=== PATIENT | male | born 1985 | race Native Hawaiian/Other Pacific Islander ===

== ENCOUNTER 2022-08-29 09:39 | Emergency (ER) | payer OTHER, MEDICAID, SELFPAY ==
[2022-08-29] VITALS (67 sets, daily range): BP systolic 130–275; BP diastolic 65–163; PULSE 81–150; RESP 3–39; TEMP 28–36.7; O2SAT 93–100; BMI 50.2
--- NOTE | 2022-08-29 10:00 | DI.US.S_ITS ---
PROCEDURE: US PERIPH VENOUS LOW EXTREM RT INDICATIONS: PAIN AND SWELLING. RECENT TRAUMA. TECHNIQUE: Real-time imaging, as well as color and pulse Doppler interrogation, were performed of the lower extremity deep veins from the inguinal ligament to the popliteal fossa. COMPARISON: None. FINDINGS: This is a limited study due to patient body habitus. The common femoral, femoral and popliteal veins are normally compressible, and free of intraluminal thrombus. Color and pulse Doppler demonstrate normal phasic intraluminal flow. There is normal augmentation response to distal compression maneuver. IMPRESSION: Limited study given body habitus. No deep vein thrombosis of the right lower extremity. Dictated by: Theresa Elliott M.D. on 08/29/2022 at 10:55 Approved by: Theresa Elliott M.D. on 08/29/2022 at 10:56
--- NOTE | 2022-08-29 10:02 | DI.US.S_ITS ---
PROCEDURE: US ABDOMEN LIMITED INDICATIONS: ASCITES - ZELDA FOR PARACENTESIS TECHNIQUE: Real-time focused scanning was performed of the abdomen, with image documentation. COMPARISON: None. FINDINGS: No free fluid visualized within the abdomen. IMPRESSION: No sonographic evidence for abdominal ascites. Dictated by: Theresa Elliott M.D. on 08/29/2022 at 11:37 Approved by: Theresa Elliott M.D. on 08/29/2022 at 11:38
--- NOTE | 2022-08-29 10:02 | DI.RAD.S_ITS ---
PROCEDURE: XR CHEST 1V INDICATIONS: SOB TECHNIQUE: One view of the chest was acquired. COMPARISON: None. FINDINGS: Surgical changes and devices: None. Lungs and pleura: There is mild diffuse interstitial radiopacities. Mediastinum: There is marked enlargement of the cardiac silhouette. Bones and chest wall: No suspicious bony lesions. Overlying soft tissues appear unremarkable. IMPRESSION: 1. Marked enlargement of the cardiac silhouette suggesting either marked cardiomegaly or large pericardial effusion. If further characterization is warranted, echocardiogram could be used. 2. Interstitial prominence suggesting fluid overload. Dictated by: Theresa Elliott M.D. on 08/29/2022 at 10:37 Approved by: Theresa Elliott M.D. on 08/29/2022 at 10:37
--- NOTE | 2022-08-29 10:11 | ED_ITS ---
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 No hernias.? There is diffuse , mild anasarca noted. Abdominal Nodes:? No retroperitoneal or mesenteric adenopathy by size criteria.? Vessels:? Aorta and inferior vena cava are normal in size.? ? PELVIS: Pelvic Organs:? Unremarkable.? ? Bladder:? Unremarkable.? ? Pelvic Nodes: No enlarged lymph nodes.? Miscellaneous: No hernias are seen. ? ? ? Bones:? Unremarkable.? IMPRESSION:? ? 1. Marked cardiomegaly.? Trace pericardial effusion. ? 2. Left lower lobe airspace radiopacities suspicious for aspiration/infection. S hort interval followup is recommended with resolution of the patient's symptoms to ensure there is no underlying pulmonary pathology. ? 3. Trace low-density right pleural effusion. ? 4. Mild splenomegaly. ? 5. Trace retroperitoneal fat stranding, perihepatic fluid and anasarca suggesting fluid overload. ? 6. Nonobstructive right nephrolithiasis. ? 7. Diverticulosis.? No acute diverticulitis.? Normal appendix. ? Dictated by: Theresa Elliott M.D. on 08/29/2022 at 13:19 ? ? Approved by: Theresa Elliott M.D. on 08/29/2022 at 13:25 ? CT scan - chest: Radiologist's Impression: [address] [address] [address] Scan Report Signed Patient: Abdirahman Cavazos MR#: [id number] : 1985 Acct:[id number] Age/Sex: 36 / M Date of Service: 08/29/22 Loc: ED Accession Number: [id number] ?? Procedure: CT angio chest PE protocol Ordering Provider: Dallas Veronica D.O. PROCEDURE:? CT ANGIO CHEST PE PROTOCOL ? INDICATIONS:? tachycardia, critical dimer, elevated trop/BNP ? TECHNIQUE:? After the administration of intravenous contrast, 2 mm thick sections acquired from the pulmonary apices to the posterior costophrenic angles.? 3-dimensional maximum intensity projection (MIP) coronal and sagittal reformats were then acquired through the thorax.? For radiation dose reduction, the following was used:? automated exposure control, adjustment of mA and/or kV according to patient size.? ? COMPARISON:? None. ? FINDINGS:? Image quality:? Excellent.? ? Pulmonary arteries:? Pulmonary arteries are normal in size, and demonstrate no intraluminal filling defects to suggest central pulmonary embolism.? ? Lungs and pleura:? There is a small low-density right pleural effusion.? Focal airspace opacities are present at the left lung base.? No other acute airspace opacities.? No pulmonary contusions or lacerations. ? Mediastinum:? Heart size is markedly enlarged with a trace low-density pericardial effusion.? No mediastinal or hilar adenopathy.? Thoracic aorta is normal in caliber and enhancement.? Esophagus is normal in caliber, without hiatal hernia.? ? Bones and chest wall:? No suspicious bony lesions.? Ribs and thoracic spine appear intact throughout.? Thyroid gland is unremarkable.? No axillary or supraclavicular adenopathy.? ? Abdomen:? Visualized upper abdominal solid organs appear normal in the early arterial phase of enhancement.? ? IMPRESSION:? ? 1. Marked cardiomegaly with trace pericardial effusion. ? 2. Trace low-density right pleural effusion. ? 3. No acute pulmonary embolus.? ? ? Dictated by: Theresa Elliott M.D. on 08/29/2022 at 13:25 ? ? Approved by: Theresa Elliott M.D. on 08/29/2022 at 13:27 ? Echo: Radiologist's Impression: [address] [address] [address] Scan Report Signed Patient: Abdirahman Cavazos MR#: [id number] : 1985 Acct:[id number] Age/Sex: 36 / M Date of Service: 08/29/22 Loc: ED Accession Number: [id number] ?? Procedure: CT angio chest PE protocol Ordering Provider: Dallas Veronica D.O. PROCEDURE:? CT ANGIO CHEST PE PROTOCOL ? INDICATIONS:? tachycardia, critical dimer, elevated trop/BNP ? TECHNIQUE:? After the administration of intravenous contrast, 2 mm thick sections acquired from the pulmonary apices to the posterior costophrenic angles.? 3-dimensional maximum intensity projection (MIP) coronal and sagittal reformats were then acquired through the thorax.? For radiation dose reduction, the following was used:? automated exposure control, adjustment of mA and/or kV according to patient size.? ? COMPARISON:? None. ? FINDINGS:? Image quality:? Excellent.? ? Pulmonary arteries:? Pulmonary arteries are normal in size, and demonstrate no intraluminal filling defects to suggest central pulmonary embolism.? ? Lungs and pleura:? There is a small low-density right pleural effusion.? Focal airspace opacities are present at the left lung base.? No other acute airspace opacities.? No pulmonary contusions or lacerations. ? Mediastinum:? Heart size is markedly enlarged with a trace low-density pericardial effusion.? No mediastinal or hilar adenopathy.? Thoracic aorta is normal in caliber and enhancement.? Esophagus is normal in caliber, without hiatal hernia.? ? Bones and chest wall:? No suspicious bony lesions.? Ribs and thoracic spine appear intact throughout.? Thyroid gland is unremarkable.? No axillary or supraclavicular adenopathy.? ? Abdomen:? Visualized upper abdominal solid organs appear normal in the early arterial phase of enhancement.? ? IMPRESSION:? ? 1. Marked cardiomegaly with trace pericardial effusion. ? 2. Trace low-density right pleural effusion. ? 3. No acute pulmonary embolus.? ? ? Dictated by: Theresa Elliott M.D. on 08/29/2022 at 13:25 ? ? Approved by: Theresa Elliott M.D. on 08/29/2022 at 13:27 ? MDM Narrative Medical decision making narrative: [address] [place] [address] Cardio (Dr. Noble) called to touch base today, largely as a consequence of an increased troponin. It should be noted patient's blood pressures remained stable for him in the 170s, he reports no pain and has no ischemic change on EKG but there is an increase of troponin, call placed to discuss how to move for, she recommends no heparin or specific interventions at this time, only to trend EKGs and troponin. Still on wait list, continue diuresis and blood pressure management as previously planned with afterload reduction 1530 - call from [facility]. Dr. Jean (Cardiology) happy to be involved in consultation, requests discussion with hospitalist. Dr. Ceja happy to accept, requests tox screen if possible CC: Exertional shortness of breath and significant weight gain Complicating co-morbidities: BMI greater than 50, possible untreated hypertension and unrecognized kidney injury Data collected from: Patient and Medical records reviewed: None available Differential considered, but not limited to: Hypertensive emergency, myocarditis, tox induced cardiomyopathy versus other Exam documented above, pertinent findings include: Crackles in bilateral bases, increased work of breathing with minimal exertion. Significantly protuberant abdomen with reported marked weight gain Lab Test results independently reviewed as above. Pertinent findings: No leukocytosis or abnormal H&H. Critical D-dimer. Initial slightly elevated troponin at 0.1, subsequently rises to 0.660. Elevated BNP over 4000 Independently reviewed EKG as above Imaging studies independently reviewed: Chest x-ray with marked interstitial prominence suggesting fluid overload and cardiomegaly. Lower extremity ultrasound to rule out DVTs negative. CTA obtained given acute heart failure and presence of critically elevated D-dimer, marked cardiomegaly noted, no PE present. Abdomen and pelvis CT ordered noting diverticulosis in the absence of diverticulitis, normal appendix, no obvious liver abnormality Consultations: Multiple discussions with various cardiologists and intensivists at possible accepting facilities, see above Treatments: Diuresis, blood pressure control, afterload reduction Re-evaluations: Patient remained stable, no point dizzy of chest pain. He presents with at least a few days of increasing shortness of breath and exertional dyspnea. He is found to have hypertensive emergency, acute CHF with echocardiogram noting global hypokinesis, EF of 20% with biventricular involvement and severe pulmonary hypertension. He has a rising troponin in the absence of EKG changes or chest pain. Patient requires not only hospitalization but transfer to another facility for higher level of care with inpatient Cardiology, multiple cardiologists have suggested patient likely needs catheterization as part of this admission. Disposition: see below, along with detailed discharge instructions that have been reviewed with patient as well as indications for ED re-evaluation and additional outpatient follow up Critical Care Time Critical Care Time Critical Care Time: Yes Total Critical Care Time: 120 Attestation: The high probability of a clinically significant, sudden or life threatening deterioration of the [CV] system(s) required my full and direct attention, intervention and personal management. The aggregate critical care time was [120] minutes. This time is in addition to time spent performing reported procedures but includes the following: [x] Data Review and interpretation [x] Patient assessment and monitoring of vital signs [x] Documentation [x] Medication orders and management Discharge Plan Departure Patient Disposition: er [facility] Clinical Impression: Acute CHF, Kidney disease, Hypertensive emergency, Elevated troponin Prescriptions: No Action oxycodone 5 mg capsule 5 mg PO BID PRN Referrals: Miscellaneous,DoctorMD [Primary Care Provider] -
[2022-08-29 10:48] LABS: Add Manual Diff / Slide Review NO; Basophils Absolute Auto 100 /uL (0-100); Basophils Percent Auto 0.7 % (0-2); Eosinophils Absolute Auto 500 /uL (0-450); Eosinophils Percent Auto 5.9 % (2-4); Hematocrit 42.4 % (41-53); Hemoglobin 13.5 g/dL (13.5-17.5); INR 1.2 (0.9-1.3); Lymphocytes Absolute Auto 1500 /uL (1100-4500); Mean Corpuscular HGB Conc 31.7 % (30-36); Mean Corpuscular Hemoglobin 24.7 PG (26-34); Mean Corpuscular Volume 77.8 fL (80-100); Monocytes Absolute Auto 800 /uL (0-900); Monocytes Percent Auto 8.9 % (3-14); Neutrophils Absolute Auto 6400 /uL (1500-7000); Neutrophils Percent Auto 68.5 % (50-75); Platelet Count 276 X10^3/uL (150-400); Prothrombin Time 13.6 SECONDS (10.1-12.7); Red Blood Cell Count 5.45 X10^6/uL (4.5-5.9); Red Cell Distribution Width 18.1 % (11.6-14.8); White Blood Cell Count 9.3 X10^3/uL (4.5-11.0)
[2022-08-29 10:52] LABS: Creatine Kinase 388 U/L (55-170); Lactate (Lactic Acid) 0.9 mmol/L (0.7-2.1)
[2022-08-29 10:54] LABS: Alanine Aminotransferase 81 IU/L (<50); Alkaline Phosphatase 55 U/L (38-126); Aspartate Aminotransferase 50 IU/L (17-59); BUN Creatinine Ratio 14.5 (6-22); Bilirubin Total 0.7 mg/dL (0.2-1.3); Blood Urea Nitrogen 35 mg/dL (9-20); C-Reactive Protein Quant 1.9 mg/dL (<1.0); Calcium 8.2 mg/dL (8.4-10.2); Carbon Dioxide 24 mmol/L (22-32); Chloride 106 mmol/L (98-107); Estimated Glomerular Filt Rate 35 mL/min (>60); Glucose 139 mg/dL (70-100); HEMOLYSIS < 15 (0-50); Lipase 490 U/L (23-300); Potassium 4.1 mmol/L (3.4-5.1); Sodium 137 mmol/L (137-145); Total Protein 6.5 g/dL (6.3-8.2)
[2022-08-29 11:00] LABS: NT-proBNP (BNP-Adult 18+) 4420 pg/mL (<125)
[2022-08-29 11:05] LABS: Troponin I 0.135 ng/mL (0.01-0.034)
--- NOTE | 2022-08-29 11:06 | DI.ECHO.S_ITS ---
[facility]---------+ [facility] +---------+ : : [address] : : : : [id number] : : : : Phone: [phone] Echocardiogram Report + + :Name: FRANK MORRIS Study Date: 08/29/2022 Height: 69 in : :[facility] ReadingLocation: Weight: 340 lb : : Gender: Male BSA: 2.6 m2 : :: 1985 Age: 36 yrs BP: 189/125 mmHg: :Reason For Study: LARGE CARDIAC SILHOUETTE, POSITIVE : :Ordering Physician: FELIX, : :ZAYNAB Performed By: Danae Waite : :Referring: ZAYNAB [place] : + + Interpretation Summary The left ventricle is mild-moderately dilated. There is moderate concentric left ventricular hypertrophy. The ejection fraction is estimated to be 20-25%. There is severe global hypokinesis of the left ventricle. Diastolic parameters suggest a restrictive filling pattern consistent with probable significantly elevated filling pressures. The right ventricle is grossly normal size. Visually RV function appears to be moderately reduced. There is mild mitral regurgitation. There is moderate tricuspid regurgitation. The right ventricular systolic pressure is estimated to be at least 75 mmHg based on an estimated right atrial pressure of 15 mm Hg. There is severe pulmonary hypertension. BP: 189/125 mmHg Procedure: A two-dimensional transthoracic echocardiogram with color flow and Doppler was performed. The study quality was technically adequate. There is no prior echocardiogram noted for this patient. The patient was in sinus tachycardia with heart rates between 95-105 bpm during the exam. Left Ventricle: There is moderate concentric left ventricular hypertrophy. The estimated left ventricular end diastolic volume is 184 ml. The left ventricle is mild-moderately dilated. There is no thrombus. The ejection fraction is estimated to be 20-25%. There is severe global hypokinesis of the left ventricle. Diastolic parameters suggest a restrictive filling pattern consistent with probable significantly elevated filling pressures. Right Ventricle: The right ventricle is not well visualized. The right ventricle is grossly normal size. Visually RV function appears to be moderately reduced. Atria: The left atrium is moderately dilated. The right atrium is mildly dilated. There is no Doppler evidence for an interatrial shunt. Mitral Valve: Tented mitral leaflets. There is mild mitral regurgitation. Aortic Valve: The aortic valve is trileaflet. The aortic valve opens well. There is no aortic valve stenosis. No aortic regurgitation is present. Tricuspid Valve: The tricuspid valve is normal. There is moderate tricuspid regurgitation. The right ventricular systolic pressure is estimated to be at least 75 mmHg based on an estimated right atrial pressure of 15 mm Hg. There is severe pulmonary hypertension. Pulmonic Valve: The pulmonic valve leaflets are thin and pliable; valve motion is normal. There is trace pulmonic regurgitation. Great Vessels: The aortic root is normal size. The dimensions of the ascending aorta are normal. The IVC is dilated (diameter is greater than 2.1 cm) and it collapses less than 50% with a sniff. This suggests a high right atrial pressure of 15 mm Hg. Pericardium/ Pleura There is no pericardial effusion. There is no pleural effusion. MMode/2D Measurements & Calculations LVIDd: 6.5 cm LVOT diam: 2.3 cm LVIDs: 5.5 cm Ao root diam: 3.2 cm FS: 14.4 % asc Aorta Diam: 3.6 cm EPSS: 2.0 cm Ao Arch Diam (Prox Trans): 3.4 cm IVSd: 1.5 cm LVPWd: 1.5 cm LV alcantara. diameter/BSA (cm/m^2): 2.5 LV sys. diameter/BSA (cm/m^2): 2.1 LA A2 area: 32.1 cm2 RA long axis: 5.3 cm LA A4 area: 21.0 cm2 RA area: 24.9 cm2 LA length (vol): 6.5 cm RA vol: 98.6 ml LA vol: 87.4 ml RA : 38.1 ml/m2 LA vol index: 33.8 ml/m2 IVC diam: 3.0 cm TAPSE: 2.0 cm Doppler Measurements & Calculations Ao V2 max: 83.3 cm/sec LVOT Max Romeo: 36.5 cm/sec Ao V2 mean: 66.8 cm/sec LV V1 max P.53 mmHg Ao max P.8 mmHg LV V1 VTI: 5.6 cm Ao mean P.9 mmHg EDER(I,D): 1.8 cm2 Ao V2 VTI: 12.5 cm EDER(V,D): 1.7 cm2 sev ratio: 0.45 EDER indexed to BSA (cm^2/m^2): 0.69 MV E max romeo: 96.6 cm/sec TR max romeo: 387.8 cm/sec MV A max romeo: 32.9 cm/sec TR max P.2 mmHg MV E/A: 2.9 PA V2 max: 85.0 cm/sec Med Peak E' Romeo: 3.9 cm/sec PA V2 mean: 54.3 cm/sec E/E' med: 25.0 PA mean P.4 mmHg Lat Peak E' Romeo: 7.6 cm/sec PA pr(Accel): 48.2 mmHg E/E' lat: 12.6 E/e' average: 18.8 MV dec time: 0.12 sec SV(LVOT): 22.4 ml Reading Physician:01:10 PM
[2022-08-29 11:08] LABS: CKMB % Relative Index 1.5 % (1.5-5.0); Creatine Kinase MB 5.71 ng/mL (<2.37)
[2022-08-29] MEDS: ASPIRIN 81 MG CHEW TAB 324 MG PO (11:12)
[2022-08-29 11:27] LABS: D Dimer 1016 ng/ml (<500)
--- NOTE | 2022-08-29 11:31 | DI.CT.S_ITS ---
PROCEDURE: CT ANGIO CHEST PE PROTOCOL INDICATIONS: tachycardia, critical dimer, elevated trop/BNP TECHNIQUE: After the administration of intravenous contrast, 2 mm thick sections acquired from the pulmonary apices to the posterior costophrenic angles. 3-dimensional maximum intensity projection (MIP) coronal and sagittal reformats were then acquired through the thorax. For radiation dose reduction, the following was used: automated exposure control, adjustment of mA and/or kV according to patient size. COMPARISON: None. FINDINGS: Image quality: Excellent. Pulmonary arteries: Pulmonary arteries are normal in size, and demonstrate no intraluminal filling defects to suggest central pulmonary embolism. Lungs and pleura: There is a small low-density right pleural effusion. Focal airspace opacities are present at the left lung base. No other acute airspace opacities. No pulmonary contusions or lacerations. Mediastinum: Heart size is markedly enlarged with a trace low-density pericardial effusion. No mediastinal or hilar adenopathy. Thoracic aorta is normal in caliber and enhancement. Esophagus is normal in caliber, without hiatal hernia. Bones and chest wall: No suspicious bony lesions. Ribs and thoracic spine appear intact throughout. Thyroid gland is unremarkable. No axillary or supraclavicular adenopathy. Abdomen: Visualized upper abdominal solid organs appear normal in the early arterial phase of enhancement. IMPRESSION: 1. Marked cardiomegaly with trace pericardial effusion. 2. Trace low-density right pleural effusion. 3. No acute pulmonary embolus. Dictated by: Theresa Elliott M.D. on 08/29/2022 at 13:25 Approved by: Theresa Elliott M.D. on 08/29/2022 at 13:27
--- NOTE | 2022-08-29 11:31 | DI.CT.S_ITS ---
PROCEDURE: CT ABDOMEN PELVIS W CON INDICATIONS: abdominal pain, distension, recent trauma TECHNIQUE: After the administration of intravenous contrast, axial sections acquired from the lung bases to the pubic symphysis. Coronal and sagittal reformats were performed. For radiation dose reduction, the following was used: automated exposure control, adjustment of mA and/or kV according to patient size. COMPARISON: [facility], CT, CT ANGIO CHEST PE PROTOCOL, 08/29/2022, 11:47. FINDINGS: Image quality: Excellent. Lung bases: Patchy pulmonary opacities are present at the left lung base. The right lung base is clear. There is a trace low-density right pleural effusion. Heart: The heart is markedly enlarged. There is a trace low-density pericardial effusion. ABDOMEN: Liver: Unremarkable. Gallbladder: Unremarkable. Trace low-density free perihepatic fluid is present. Biliary ducts: Unremarkable. Pancreas: Unremarkable. Spleen: The spleen measures 13.0 cm in length. Adrenal Glands: Unremarkable. Kidneys and Ureters: A nonobstructing 2 mm calculus is present at the lower pole of the right kidney. No hydronephrosis, hydroureter, or ureterolithiasis. Stomach and Bowel: Stomach, small bowel loops, and colon are unremarkable. There are scattered sigmoid diverticula. No evidence for diverticulitis. The appendix is thin walled and gas filled. Peritoneum: No free intraperitoneal fluid. No pneumoperitoneum. There is mild retroperitoneal fat stranding present around the infrarenal abdominal aorta and the bilateral common iliac arteries. Ventral Wall: No hernias. There is diffuse , mild anasarca noted. Abdominal Nodes: No retroperitoneal or mesenteric adenopathy by size criteria. Vessels: Aorta and inferior vena cava are normal in size. PELVIS: Pelvic Organs: Unremarkable. Bladder: Unremarkable. Pelvic Nodes: No enlarged lymph nodes. Miscellaneous: No hernias are seen. Bones: Unremarkable. IMPRESSION: 1. Marked cardiomegaly. Trace pericardial effusion. 2. Left lower lobe airspace radiopacities suspicious for aspiration/infection. Short interval followup is recommended with resolution of the patient's symptoms to ensure there is no underlying pulmonary pathology. 3. Trace low-density right pleural effusion. 4. Mild splenomegaly. 5. Trace retroperitoneal fat stranding, perihepatic fluid and anasarca suggesting fluid overload. 6. Nonobstructive right nephrolithiasis. 7. Diverticulosis. No acute diverticulitis. Normal appendix. Dictated by: Theresa Elliott M.D. on 08/29/2022 at 13:19 Approved by: Theresa Elliott M.D. on 08/29/2022 at 13:25
[2022-08-29] MEDS: SODIUM CHLORIDE 0.9% 500 ML 1000 ML IV (11:46)
[2022-08-29] MEDS: NITROGLYCERIN OINT 1 INCH/GM OINT...G. TOP (14:24)
[2022-08-29 15:21] LABS: COVID19 -Nasal RAPID Negative (Negative)
[2022-08-29 17:11] LABS: BUN Creatinine Ratio 14.8 (6-22); Blood Urea Nitrogen 34 mg/dL (9-20); Calcium 8.1 mg/dL (8.4-10.2); Carbon Dioxide 25 mmol/L (22-32); Chloride 106 mmol/L (98-107); Creatine Kinase 406 U/L (55-170); Estimated Glomerular Filt Rate 37 mL/min (>60); Glucose 128 mg/dL (70-100); HEMOLYSIS 20 (0-50); Potassium 4.3 mmol/L (3.4-5.1); Sodium 138 mmol/L (137-145)
[2022-08-29 17:21] LABS: NT-proBNP (BNP-Adult 18+) 4210 pg/mL (<125)
[2022-08-29 17:25] LABS: Troponin I 0.119 ng/mL (0.01-0.034)
[2022-08-29 17:26] LABS: Creatine Kinase MB 4.07 ng/mL (<2.37)
[2022-08-29] MEDS: HYDRALAZINE 20 MG/ML VIAL 10 MG IV (17:34)
[2022-08-29] MEDS: HYDRALAZINE 20 MG/ML VIAL IV ×2 (18:38→21:20)
[2022-08-29 18:53] LABS: Bacteria Urine Occasional (0-1); RBC Urine 5-10/HPF (0-5/HPF); Squamous Epithelial Cell Urine 0-1 /HPF (0-5/HPF); WBC Urine 0-1/HPF (0-5/HPF)
[2022-08-29 18:54] LABS: Culture Indicated Urine Cult Not Indicated; Other Crystals Urine Few Sodium Urate; Uric Acid Crystals Urine Moderate
[2022-08-29] MEDS: NITROGLYCERIN OINT 1 INCH/GM OINT...G. 2 INCH TOP (19:01)
[2022-08-29] MEDS: FUROSEMIDE 40 MG/4 ML VIAL IV (19:31)
--- NOTE | 2022-08-29 20:18 | PC.NURSE ---
Addendum entered by Dorita Escoto R.N. 08/29/22 23:12: Patient became tachycardic around 2220, Dr Holden made aware. New orders placed for ativan. Continues to remain tachycardic, provider is aware. Patient c/o leg cramps, BMP reported to Dr Holden. No new orders. Original Note: Patient not tolerating bipap, states it's making my head hurt. Notified provider and RT.
[2022-08-29] MEDS: LORazepam 2 MG/ML INJ 1 MG IV ×2 (21:20→22:21)
[2022-08-29 21:56] LABS: BUN Creatinine Ratio 15.4 (6-22); Blood Urea Nitrogen 35 mg/dL (9-20); Calcium 9.1 mg/dL (8.4-10.2); Carbon Dioxide 24 mmol/L (22-32); Chloride 105 mmol/L (98-107); Estimated Glomerular Filt Rate 37 mL/min (>60); Glucose 112 mg/dL (70-100); Sodium 141 mmol/L (137-145)
[2022-08-29 22:04] LABS: HEMOLYSIS 67 (0-50)
[2022-08-29 22:05] LABS: Potassium 4.2 mmol/L (3.4-5.1)
[2022-08-30] VITALS (70 sets, daily range): BP systolic 106–195; BP diastolic 60–128; PULSE 88–138; RESP 10–35; TEMP 36.6; O2SAT 94–100
[2022-08-30 08:41] LABS: Add Manual Diff / Slide Review NO; Basophils Absolute Auto 100 /uL (0-100); Basophils Percent Auto 0.8 % (0-2); Eosinophils Absolute Auto 300 /uL (0-450); Eosinophils Percent Auto 2.5 % (2-4); Hematocrit 40.8 % (41-53); Hemoglobin 13.2 g/dL (13.5-17.5); Lymphocytes Absolute Auto 1300 /uL (1100-4500); Lymphocytes Percent Auto 11.9 % (25-40); Mean Corpuscular HGB Conc 32.4 % (30-36); Mean Corpuscular Hemoglobin 24.9 PG (26-34); Mean Corpuscular Volume 76.7 fL (80-100); Monocytes Absolute Auto 1200 /uL (0-900); Monocytes Percent Auto 10.7 % (3-14); Neutrophils Absolute Auto 8000 /uL (1500-7000); Neutrophils Percent Auto 74.1 % (50-75); Platelet Count 299 X10^3/uL (150-400); Red Blood Cell Count 5.32 X10^6/uL (4.5-5.9); White Blood Cell Count 10.8 X10^3/uL (4.5-11.0)
[2022-08-30 09:05] LABS: Alanine Aminotransferase 73 IU/L (<50); Aspartate Aminotransferase 55 IU/L (17-59); BUN Creatinine Ratio 15.2 (6-22); Bilirubin Total 1.3 mg/dL (0.2-1.3); Blood Urea Nitrogen 29 mg/dL (9-20); Calcium 8.5 mg/dL (8.4-10.2); Carbon Dioxide 27 mmol/L (22-32); Chloride 103 mmol/L (98-107); Creatine Kinase 444 U/L (55-170); Estimated Glomerular Filt Rate 46 mL/min (>60); Glucose 119 mg/dL (70-100); HEMOLYSIS < 15 (0-50); Potassium 3.6 mmol/L (3.4-5.1); Sodium 139 mmol/L (137-145)
[2022-08-30 09:18] LABS: NT-proBNP (BNP-Adult 18+) 3920 pg/mL (<125)
[2022-08-30 09:20] LABS: Creatine Kinase MB 4.44 ng/mL (<2.37)
--- NOTE | 2022-08-30 10:28 | PC.NURSE ---
0800: Rec'd report from KRISHNA RN. Pt resting in recliner chair. No longer requiring bipap. Appears to be sleeping. Vitals all WNL. NAD. Pt was accepted at OSH and waiting for bed assignment and pending transport.
--- NOTE | 2022-08-30 10:47 | PC.NURSE ---
pt awake and alert. denying CP. sitting in recliner chair on cell phone. NAD. needs met at this time
[2022-08-30] MEDS: NITROGLYCERIN OINT 1 INCH/GM OINT...G. 2 INCH TOP (13:26)
[2022-08-30 14:35] LABS: Creatine Kinase 455 U/L (55-170)
[2022-08-30 14:50] LABS: Troponin I 0.547 ng/mL (0.01-0.034)
[2022-08-30 14:51] LABS: CKMB % Relative Index 0.9 % (1.5-5.0); Creatine Kinase MB 4.05 ng/mL (<2.37)
[2022-08-30 16:51] LABS: UR Morphine/Opiate cutoff 300 Negative (Negative); Ur Creatinine Normal (Normal); Ur Specific Gravity Normal (Normal); Urine Amphetamines Negative (Negative); Urine Barbiturates Negative (Negative); Urine Cocaine Negative (Negative); Urine MDMA Negative (Negative); Urine Methamphetamines Negative (Negative); Urine Phencyclidine Negative (Negative); Urine Tetrahydrocannabinol Negative (Negative); Urine pH Normal (Normal)
[2022-08-30 16:52] LABS: Urine Benzodiazepines Negative (Negative); Urine Methadone Negative (Negative); Urine Oxycodone Negative (Negative); Urine Tricyclic Antidepressant Negative (Negative)
[2022-09-02 15:38] LABS: Albumin 3.4 g/dL (3.5-5.0); Albumin Globulin Ratio 1.1 (1.0-2.8); Globulin 3.1 g/dL (1.7-4.1)
== END 2022-08-30 17:45 | disposition short-term general hospital (02) ==
PROVIDERS: Emergency Medicine; Emergency Provider Emergency Medicine
DX: I16.1 Hypertensive emergency (principal); I50.9 Heart failure, unspecified; N28.9 Disorder of kidney and ureter, unspecified; R77.8 Other specified abnormalities of plasma proteins; R00.0 Tachycardia, unspecified; Z20.822 Contact with and (suspected) exposure to COVID-19
CPT/HCPCS: 36415; 71045; 71275; 74177; 76705; 80048; 80053; 80305; 81003; 81015; 82247; 82550; 82553; 83605; 83690; 83735; 83880; 84450; 84460; 84484; 85025; 85379; 85610; 86140; 87635; 93005; 93306; 93971; 94660; 96361; 96374; 96375; 96376; 99285; 99291; 99292; C9803; J0360; J1940; J2060; Q9967

== ENCOUNTER 2025-02-23 13:11 | Observation (INO) | payer SELFPAY ==
[2022-08-29 21:51] VITALS: PULSE 102; RESP 26; O2SAT 98
[2025-02-23] VITALS (24 sets, daily range): BP systolic 141–205; BP diastolic 66–103; PULSE 84–122; RESP 18–28; TEMP 38; O2SAT 93–99; BMI 35.4
--- NOTE | 2025-02-23 14:11 | DI.RAD.S_ITS ---
PROCEDURE: XR CHEST 1V INDICATIONS: sepsis TECHNIQUE: One view of the chest was acquired. COMPARISON: [facility], CR, XR CHEST 1V, 08/29/2022, 10:16. FINDINGS: Surgical changes and devices: None. Lungs and pleura: Lungs are clear. No pleural effusions or pneumothorax. Mediastinum: Mediastinal contours appear normal. Heart size is normal. Bones and chest wall: No suspicious bony lesions. Overlying soft tissues appear unremarkable. IMPRESSION: No acute cardiopulmonary abnormality is seen. Dictated by: Alli Esposito M.D. on 02/23/2025 at 14:30 Approved by: Alli Esposito M.D. on 02/23/2025 at 14:30
[2025-02-23 14:35] LABS: Add Manual Diff / Slide Review NO; Hematocrit 37.8 % (41-53); Hemoglobin 12.9 g/dL (13.5-17.5); Lymphocytes Absolute Auto 900 /uL (1100-4500); Mean Corpuscular HGB Conc 34.2 % (30-36); Mean Corpuscular Hemoglobin 25.6 PG (26-34); Mean Corpuscular Volume 74.9 fL (80-100); Platelet Count 309 X10^3/uL (150-400)
[2025-02-23 14:41] LABS: INR 1.3 (0.9-1.3); Prothrombin Time 14.6 SECONDS (9.4-12.5)
[2025-02-23 14:48] LABS: Alanine Aminotransferase 26 IU/L (<50); Albumin 4.6 g/dL (3.5-5.0); Albumin Globulin Ratio 1.0 (1.0-2.8); Alkaline Phosphatase 85 U/L (38-126); Blood Urea Nitrogen 24 mg/dL (9-20); Calcium 9.4 mg/dL (8.4-10.2); Carbon Dioxide 25 mmol/L (22-32); Chloride 88 mmol/L (98-107); Estimated Glomerular Filt Rate 49 mL/min (>60); Globulin 4.5 g/dL (1.7-4.1); Glucose 181 mg/dL (70-99); HEMOLYSIS < 15 (0-50); Lactate (Lactic Acid) 1.6 mmol/L (0.7-2.1); Sodium 128 mmol/L (137-145); Total Protein 9.1 g/dL (6.3-8.2)
[2025-02-23 14:49] LABS: Potassium 2.6 mmol/L (3.4-5.1)
[2025-02-23 14:49] LABS: PTT Partial Thromboplastin Tim 36 SECONDS (25.1-36.5)
[2025-02-23 14:53] LABS: Appearance Urine UA CLEAR; Bilirubin Urine UA NEGATIVE (NEGATIVE); Color Urine UA YELLOW; Glucose Urine UA 3+ g/dL (Negative); Ketones Urine UA NEGATIVE (NEGATIVE); Leukocyte Esterase Urine UA NEGATIVE (NEGATIVE); Nitrite Urine UA NEGATIVE (Negative); Occult Blood Urine UA 3+ (Negative); Protein Urine UA 2+ (Negative); Specific Gravity Urine UA 1.010 (1.000-1.035); Urobilinogen Urine UA 1.0 E.U./dL (0.2); pH Urine UA 5.5 (4.5-8.0)
[2025-02-23 14:54] LABS: NT-proBNP (BNP-Adult 18+) 124 pg/mL (<125)
[2025-02-23 14:57] LABS: Troponin I 0.023 ng/mL (0.01-0.034)
--- NOTE | 2025-02-23 15:01 | EKG_ITS ---
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
[2025-02-23 15:02] LABS: Culture Indicated Urine Cult Not Indicated
[2025-02-23 15:04] LABS: Procalcitonin 1.24 ng/mL (<0.5)
--- NOTE | 2025-02-23 15:19 | DI.CT.S_ITS ---
PROCEDURE: CT ABDOMEN PELVIS WO/W CON INDICATIONS: sepsis TECHNIQUE: After the administration of oral contrast, 5 mm thick sections acquired from the diaphragms to the iliac crests. After the administration of intravenous contrast, 5 mm thick sections acquired from the diaphragms to the symphysis. 5 mm thick coronal and sagittal reformats were acquired. For radiation dose reduction, the following was used: automated exposure control, adjustment of mA and/or kV according to patient size. COMPARISON: [facility], CT, CT ANGIO CHEST PE PROTOCOL, 02/23/2025, 15:28. [facility], CT, CT ABDOMEN PELVIS W CON, 08/29/2022, 11:47. FINDINGS: Image quality: Diagnostic. Lower Chest: Coronary artery calcifications. No pleural effusion. Minimal streaky opacity at the left lung base. ABDOMEN: Liver: No solid mass. Hepatic steatosis. Gallbladder: No radiopaque gallstones or wall thickening. Biliary ducts: No biliary dilation. Pancreas: No ductal dilation. Spleen: Size is within normal limits. Adrenal Glands: No adrenal nodules. Kidneys and Ureters: No hydronephrosis. Punctate nonobstructing right kidney stone. No solid mass. No complex renal cystic lesion which requires follow up. Stomach and Bowel: Normal colonic caliber, without significant wall thickening. Diverticulosis. No diverticulitis. Normal appendix. Peritoneum: No abnormal intraperitoneal fluid. No free air. Ventral Wall: No significant ventral hernia. Abdominal Nodes: No retroperitoneal or mesenteric adenopathy by size criteria. Vessels: Aorta and inferior vena cava are normal in size. PELVIS: Pelvic Organs: Unremarkable. Bladder: No bladder wall thickening, accounting for underdistention. Pelvic Nodes: No enlarged lymph nodes. Miscellaneous: No inguinal hernias are seen. Bones: No aggressive osseous abnormality. IMPRESSION: 1. No acute abnormality is identified. 2. Minimal streaky opacity at the left lung base. Favor atelectasis. However, difficult to exclude infectious/inflammatory etiology. 3. Punctate nonobstructing right kidney stone. No hydronephrosis. 4. No diverticulitis. No free fluid. Dictated by: Alli Esposito M.D. on 02/23/2025 at 16:27 Approved by: Alli Esposito M.D. on 02/23/2025 at 16:36
--- NOTE | 2025-02-23 15:19 | DI.CT.S_ITS ---
PROCEDURE: CT ANGIO CHEST PE PROTOCOL INDICATIONS: pe TECHNIQUE: After the administration of intravenous contrast, 2 mm thick sections acquired from the pulmonary apices to the posterior costophrenic angles. 3-dimensional maximum intensity projection (MIP) coronal and sagittal reformats were then acquired through the thorax. For radiation dose reduction, the following was used: automated exposure control, adjustment of mA and/or kV according to patient size. COMPARISON: [facility], CT, CT ANGIO CHEST PE PROTOCOL, 08/29/2022, 11:47. FINDINGS: Image quality: Diagnostic. Pulmonary arteries: Pulmonary arteries are normal in size, and demonstrate no intraluminal filling defects to suggest central pulmonary embolism. Lower Neck: No enlarged lymph nodes. Thyroid: No thyroid nodules which require sonographic follow up, per consensus guidelines. Axillae: No enlarged lymph nodes. Chest Wall: Unremarkable. Bones: Unremarkable. Lungs and Pleura: No pneumothorax or pleural effusions. No consolidation or suspicious nodules. Heart: Heart size is normal. No pericardial effusion. Thoracic Vessels: No aortic aneurysm. Mediastinum and [place]: No enlarged lymph nodes. Esophagus: No wall thickening. No hiatal hernia. Upper Abdomen: Visualized upper abdomen solid organs and bowel loops appear normal. IMPRESSION: 1. No pulmonary embolism. 2. No acute airspace opacity. Dictated by: Alli Esposito M.D. on 02/23/2025 at 15:38 Approved by: Alli Esposito M.D. on 02/23/2025 at 15:42
[2025-02-23 15:28] LABS: Coronavirus NL 63 Not Detected (Not Detect); SARS- CoV-2 Not Detected (Not Detecte)
[2025-02-23] MEDS: HYDROMORPHONE 1 MG INJ IV (15:32)
[2025-02-23] MEDS: ACETAMINOPHEN IV 1,000 MG/100 ML VIAL 400 MG IV (15:33)
[2025-02-23] MEDS: SODIUM CHLORIDE 0.9% 3,265.86 ML 1088.62 ML IV (15:35)
[2025-02-23] MEDS: POTASSIUM CHLORIDE IN WATER 10 MEQ/100 ML PIGGYBACK 100 MEQ IV ×4 (15:56→22:08)
--- NOTE | 2025-02-23 16:03 | PC.NURSE ---
pt wants us to call former Leah at [phone] with any significant updates
[2025-02-23] MEDS: CEFEPIME 2 GM in SODIUM CHLORIDE 0.9% 100 ML IV (16:07)
[2025-02-23] MEDS: VANCOMYCIN 1,750 MG in SODIUM CHLORIDE 0.9% 250 ML 250 MG IV (17:13)
--- NOTE | 2025-02-23 19:03 | ED_ITS ---
HPI - Sepsis General Chief Complaint: Weakness Mode of arrival: Wheelchair Source: patient Evaluation Sepsis Screen: No Definite Risk Sepsis Infection Criteria Present: Suspected New Infection Narrative: Abdirahman Cavazos is a pleasant 39-year-old man with a history of ND and gout who comes to the ER because of feeling generally unwell. He denies any wheezing, cough, chest pain, nausea, vomiting, diarrhea, abdominal pain, neck pain or stiffness, pain with urination or frequency or urgency or hematuria. He denies any new skin rashes. He states he is having pain on the left side of his body which is typical for him over the last few months. He has sought medical care for similar types of pain during previous episodes and has always been told it was gout he states. Patient History Social History Smoking Status: Former smoker Smoking Status: Former smoker Exam Initial Vital Signs Initial Vital Signs: Vital Signs Temperature 100.4 F H 02/23/25 13:20 Pulse Rate 111 H 02/23/25 13:20 Respiratory Rate 20 02/23/25 13:20 Blood Pressure 153/96 H 02/23/25 13:20 Pulse Oximetry 97 02/23/25 13:20 Oxygen Delivery Method Room Air 02/23/25 13:20 Const General: No cooperative and ill appearing (toxic) [facility] Head: normal to inspection, normocephalic and atraumatic Eyes General: Yes appearance normal, both eyes and all related structures Neck Neck: normal visual inspection, supple, No positive Brudzinski's sign, No positive Kernig's sign and No tender Carotids: no bruits Resp Effort & Inspection: normal respiratory effort Auscultation: clear to auscultation bilaterally Cardio Rate: regular rate Rhythm: regular rhythm Heart Sounds: S1 normal and S2 normal GI Palpation: soft and No tender Back/Spine/Pelvis Back: No back tenderness and No CVA tenderness Skin General: no rashes or lesions noted Other: warm 1st right MCP consistent w Gout Neuro General: patient alert, patient awake and patient oriented x3 Cranial Nerves: CN's II-XI intact bilaterally Extrem General: No calf tenderness Psych Appearance: grossly normal Course Orders Ordered: ED Orders 02/23/25 14:07 Complete Blood Count AUTO DIFF Stat EKG-12 Lead Stat 02/23/25 14:10 Blood Culture Stat Venous Blood Gas STAT 02/23/25 14:11 Chest [XR chest 1V] Stat 02/23/25 14:20 BNP [NT-proBNP (BNP-Adult 18+)] Stat CRP [C-Reactive Protein Quant] Stat D Dimer Stat ESR [Erythrocyte Sedimentation Rate] Stat PTT Partial Thromboplastin Fredis Stat Troponin I Stat 02/23/25 14:33 Respiratory Panel (Film Array) Stat 02/23/25 14:39 Comprehensive Metabolic Panel Stat Lactate (Lactic Acid) Stat Procalcitonin Stat Prothrombin Time INR Stat 02/23/25 14:48 Urinalysis and Microscopic Stat 02/23/25 14:52 Blood Culture Stat 02/23/25 15:19 CT abdomen pelvis wo/w con Stat CT angio chest PE protocol Stat Discontinued Medications Hydromorphone HCl (Hydromorphone 1 Mg Inj) 1 mg IV NOW ONE Stop: 02/23/25 15:19 Last Admin: 02/23/25 15:32 Dose: 1 mg Documented By: LA NENA Acetaminophen (Ofirmev) 1,000 mg in 100 mls @ 400 mls/hr IV NOW ONE Stop: 02/23/25 15:32 Last Infusion: 02/23/25 16:07 Dose: Infused Documented By: LA NENA Infusion: 02/23/25 15:47 Dose: 400 mls/hr Documented By: LA NENA Infusion: 02/23/25 15:34 Dose: 0 mls/hr Documented By: LA NENA Admin: 02/23/25 15:33 Dose: 400 mls/hr Documented By: LA NENA Sodium Chloride (Normal Saline 0.9%) 3,265.86 mls @ 1,088.62 mls/hr 30 ml/kg infuse over 3 hr (3265.86 ml) IV NOW ONE Stop: 02/23/25 18:18 Last Admin: 02/23/25 15:35 Dose: 1,088.62 mls/hr Documented By: LA NENA Cefepime HCl 2 gm/ Sodium (Chloride) 100 mls @ 200 mls/hr IV NOW ONE Stop: 02/23/25 15:20 Last Infusion: 02/23/25 16:47 Dose: Infused Documented By: LA NENA Admin: 02/23/25 16:07 Dose: 200 mls/hr Documented By: LA NENA Vancomycin HCl 1,750 mg/ (Sodium Chloride) 250 mls @ 250 mls/hr IV NOW ONE Stop: 02/23/25 16:18 Last Infusion: 02/23/25 19:07 Dose: Infused Documented By: LA NENA Admin: 02/23/25 17:13 Dose: 250 mls/hr Documented By: LA NENA POTASSIUM CHLORIDE IN WATER (Potassium Cl 10 Meq/100 Ml Nicole) 10 meq in 100 mls @ 100 mls/hr IV Q1H BUNNY Stop: 02/23/25 19:29 Last Admin: 02/23/25 19:14 Dose: 100 mls/hr Documented By: LA NENA Infusion: 02/23/25 19:06 Dose: Infused Documented By: LA NENA Admin: 02/23/25 17:01 Dose: 100 mls/hr Documented By: LA NENA Infusion: 02/23/25 17:00 Dose: Infused Documented By: LA NENA Admin: 02/23/25 15:56 Dose: 100 mls/hr Documented By: LA NENA Vital Signs Vital signs: Vital Signs - 8 hr 02/23/25 13:20 02/23/25 14:02 02/23/25 14:05 Temperature 100.4 F H Pulse Rate 111 H 103 H 103 H Respiratory Rate 20 18 Blood Pressure 153/96 H Pulse Oximetry 97 99 98 Oxygen Delivery Method Room Air 02/23/25 14:05 02/23/25 14:30 02/23/25 14:30 Temperature Pulse Rate 98 H Respiratory Rate 19 Blood Pressure 141/93 H 154/92 H Pulse Oximetry 94 Oxygen Delivery Method 02/23/25 15:00 02/23/25 15:04 02/23/25 15:04 Temperature Pulse Rate 99 H 100 H Respiratory Rate 19 19 Blood Pressure 151/86 H Pulse Oximetry 98 97 Oxygen Delivery Method 02/23/25 15:30 02/23/25 16:00 02/23/25 16:13 Temperature Pulse Rate 101 H 105 H 106 H Respiratory Rate 18 24 24 Blood Pressure Pulse Oximetry 99 93 93 Oxygen Delivery Method 02/23/25 16:13 02/23/25 16:30 02/23/25 16:30 Temperature Pulse Rate 108 H Respiratory Rate Blood Pressure 159/77 H 154/70 H Pulse Oximetry 95 Oxygen Delivery Method 02/23/25 17:00 02/23/25 17:00 02/23/25 17:30 Temperature Pulse Rate 100 H Respiratory Rate 23 Blood Pressure 148/66 H 151/73 H Pulse Oximetry 93 Oxygen Delivery Method 02/23/25 17:30 02/23/25 18:00 02/23/25 18:00 Temperature Pulse Rate 92 H 86 Respiratory Rate 20 18 Blood Pressure 148/85 H Pulse Oximetry 94 94 Oxygen Delivery Method 02/23/25 18:30 02/23/25 18:30 02/23/25 19:00 Temperature Pulse Rate 84 85 Respiratory Rate 19 20 Blood Pressure 147/90 H Pulse Oximetry 97 97 Oxygen Delivery Method 02/23/25 19:00 Temperature Pulse Rate Respiratory Rate Blood Pressure 143/83 H Pulse Oximetry Oxygen Delivery Method Sepsis Evaluation (ED) Triage Screening Sepsis Screen: No Definite Risk Level 1 - Infection Sepsis Infection Criteria Present: Suspected New Infection Response It is my opinion that this patient have a likely infectious etiology for meeting sepsis criteria: Does Fluid calculation based on 30 mL/kg within 1hr of criteria: ABW used Antibiotics initiated within 1 hr of Sepis dx: Yes Tissue Perfusion Reassessed within 6 hrs of infusion start time: Yes (N/A dont know what this means) Date of Tissue Perfusion Reassessment completed: 02/23/25 Time Tissue Perfusion Reassessment completed: 00:00 MDM - Sepsis Lab Data 02/23/25 14:07 02/23/25 14:39 Labs: Lab Results 02/23/25 02/23/25 02/23/25 Range/Units 14:07 14:20 14:33 WBC 14.0 H (4.5-11.0) X10^3/uL RBC 5.04 (4.5-5.9) X10^6/uL Hgb 12.9 L (13.5-17.5) g/dL Hct 37.8 L (41-53) % MCV 74.9 L (80-100) fL MCH 25.6 L (26-34) PG MCHC 34.2 (30-36) % RDW 18.3 H (11.6-14.8) % Plt Count 309 (150-400) X10^3/uL Neut % (Auto) 82.7 H (50-75) % Lymph % (Auto) 6.2 L (25-40) % [place] % (Auto) 10.6 (3-14) % Eos % (Auto) 0.0 L (2-4) % Baso % (Auto) 0.5 (0-2) % Neut # (Auto) 94348 H (3150-5153) /uL Lymph # (Auto) 900 L (0635-8302) /uL [place] # (Auto) 1500 H (0-900) /uL Eos # (Auto) 0 (0-450) /uL Baso # (Auto) 100 (0-100) /uL ESR 28 H (0-15) MM/HR PT (9.4-12.5) SECONDS INR (0.9-1.3) APTT 36 (25.1-36.5) SECONDS D-Dimer 1409 H (<500) ng/ml Sodium (137-145) mmol/L Potassium (3.4-5.1) mmol/L Chloride (98-107) mmol/L Carbon Dioxide (22-32) mmol/L BUN (9-20) mg/dL Creatinine (0.66-1.25) mg/dL Estimated GFR (>60) mL/min BUN/Creatinine Ratio (6-22) Glucose (70-99) mg/dL Lactate (0.7-2.1) mmol/L Calcium (8.4-10.2) mg/dL Total Bilirubin (0.2-1.3) mg/dL AST (17-59) IU/L ALT (<50) IU/L Alkaline Phosphatase (38-126) U/L Troponin I 0.023 (0.01-0.034) ng/mL C-Reactive Protein 37.8 H (<1.0) mg/dL NT-Pro-B Natriuret Pep 124 (<125) pg/mL Total Protein (6.3-8.2) g/dL Albumin (3.5-5.0) g/dL Globulin (1.7-4.1) g/dL Albumin/Globulin Ratio (1.0-2.8) Procalcitonin (<0.5) ng/mL Urine Color Urine Appearance Urine pH (4.5-8.0) Ur Specific [place] (1.000-1.035) Urine Protein (Negative) Urine Glucose (UA) (Negative) g/dL Urine Ketones (NEGATIVE) Urine Occult Blood (Negative) Urine Nitrate (Negative) Urine Bilirubin (NEGATIVE) Urine Urobilinogen (0.2) E.U./dL Ur Leukocyte Esterase (NEGATIVE) Urine RBC (0-5/HPF) Urine WBC (0-5/HPF) Ur Squamous Epith Cells (0-5/HPF) Urine Bacteria (None) Granular Casts (None) Ur Culture Indicated? Vol Urine Centrifuged Chlamy pneumoniae PCR Not detected (Not Detect) Adenovirus (PCR) Not detected (Not Detect) B. pertussis DNA (PCR) Not detected (Not Detect) B.parapertussis DNA PCR Not detected (Not Detecte) Coronavirus OC43 (PCR) Not detected (Not Detect) Coronavirus HKU1 (PCR) Not detected (Not Detect) Coronavirus 229E (PCR) Not detected (Not Detect) SARS-CoV-2 (PCR) Not detected (Not Detecte) Coronavirus NL63 (PCR) Not detected (Not Detect) Human Metapneumovir PCR Not detected (Not Detect) Influenza Type A (PCR) Not detected (Not Detect) Influenza Type B (PCR) Not detected (Not Detect) M. pneumoniae (PCR) Not detected (Not Detect) Parainfluenza 1 (PCR) Not detected (Not Detect) Parainfluenza 2 (PCR) Not detected (Not Detect) Parainfluenza 3 (PCR) Not detected (Not Detect) Parainfluenza 4 (PCR) Not detected (Not Detect) RSV (PCR) Not detected (Not Detect) Entero/Rhino (PCR) Not detected (Not Detect) 02/23/25 02/23/25 Range/Units 14:39 14:48 WBC (4.5-11.0) X10^3/uL RBC (4.5-5.9) X10^6/uL Hgb (13.5-17.5) g/dL Hct (41-53) % MCV (80-100) fL MCH (26-34) PG MCHC (30-36) % RDW (11.6-14.8) % Plt Count (150-400) X10^3/uL Neut % (Auto) (50-75) % Lymph % (Auto) (25-40) % [place] % (Auto) (3-14) % Eos % (Auto) (2-4) % Baso % (Auto) (0-2) % Neut # (Auto) (8292-0608) /uL Lymph # (Auto) (6885-3797) /uL [place] # (Auto) (0-900) /uL Eos # (Auto) (0-450) /uL Baso # (Auto) (0-100) /uL ESR (0-15) MM/HR PT 14.6 H (9.4-12.5) SECONDS INR 1.3 (0.9-1.3) APTT (25.1-36.5) SECONDS D-Dimer (<500) ng/ml Sodium 128 L (137-145) mmol/L Potassium 2.6 L* (3.4-5.1) mmol/L Chloride 88 L (98-107) mmol/L Carbon Dioxide 25 (22-32) mmol/L BUN 24 H (9-20) mg/dL Creatinine 1.78 H (0.66-1.25) mg/dL Estimated GFR 49 L (>60) mL/min BUN/Creatinine Ratio 13.5 (6-22) Glucose 181 H (70-99) mg/dL Lactate 1.6 (0.7-2.1) mmol/L Calcium 9.4 (8.4-10.2) mg/dL Total Bilirubin 2.3 H (0.2-1.3) mg/dL AST 29 (17-59) IU/L ALT 26 (<50) IU/L Alkaline Phosphatase 85 (38-126) U/L Troponin I (0.01-0.034) ng/mL C-Reactive Protein (<1.0) mg/dL NT-Pro-B Natriuret Pep (<125) pg/mL Total Protein 9.1 H (6.3-8.2) g/dL Albumin 4.6 (3.5-5.0) g/dL Globulin 4.5 H (1.7-4.1) g/dL Albumin/Globulin Ratio 1.0 (1.0-2.8) Procalcitonin 1.24 H (<0.5) ng/mL Urine Color Yellow Urine Appearance Clear Urine pH 5.5 (4.5-8.0) Ur Specific [place] 1.010 (1.000-1.035) Urine Protein 2+ H (Negative) Urine Glucose (UA) 3+ H (Negative) g/dL Urine Ketones Negative (NEGATIVE) Urine Occult Blood 3+ H (Negative) Urine Nitrate Negative (Negative) Urine Bilirubin Negative (NEGATIVE) Urine Urobilinogen 1.0 (0.2) E.U./dL Ur Leukocyte Esterase Negative (NEGATIVE) Urine RBC 10-30/hpf H (0-5/HPF) Urine WBC 1-5/hpf (0-5/HPF) Ur Squamous Epith Cells 1-5 /hpf (0-5/HPF) Urine Bacteria None seen (None) Granular Casts 0-1/lpf (None) Ur Culture Indicated? Cult not indicated Vol Urine Centrifuged 10ml (spun) Chlamy pneumoniae PCR (Not Detect) Adenovirus (PCR) (Not Detect) B. pertussis DNA (PCR) (Not Detect) B.parapertussis DNA PCR (Not Detecte) Coronavirus OC43 (PCR) (Not Detect) Coronavirus HKU1 (PCR) (Not Detect) Coronavirus 229E (PCR) (Not Detect) SARS-CoV-2 (PCR) (Not Detecte) Coronavirus NL63 (PCR) (Not Detect) Human Metapneumovir PCR (Not Detect) Influenza Type A (PCR) (Not Detect) Influenza Type B (PCR) (Not Detect) M. pneumoniae (PCR) (Not Detect) Parainfluenza 1 (PCR) (Not Detect) Parainfluenza 2 (PCR) (Not Detect) Parainfluenza 3 (PCR) (Not Detect) Parainfluenza 4 (PCR) (Not Detect) RSV (PCR) (Not Detect) Entero/Rhino (PCR) (Not Detect) ECG Data Interpretation: Normal sinus rhythm. Rate 98. Prolonged QT [address] or T-wave abnormalities. MDM Narrative Medical decision making narrative: Patient meeting SIRS criteria based on his vital signs upon presentation. He was also acutely ill-appearing. Normal sepsis labs were ordered and he had no focal complaints to help discern the source of the infection so he had chest x- ray abdominal CT and urinalysis. He fortunately did not have any meningeal signs on exam so no lumbar puncture was done. He was started on Rocephin and azithromycin and given 30 cc/kg fluid bolus. The patient was then admitted by the hospitalist for sepsis due to unknown origin. Discharge Plan Departure Patient Disposition: Admitted As Inpatient Clinical Impression: Sepsis Qualifiers: Sepsis type: sepsis due to unspecified organism Sepsis acute organ dysfunction status: unspecified Qualified Code(s): A41.9 - Sepsis, unspecified organism
[2025-02-23] MEDS: DOXYCYCLINE HYCLATE 100 MG TABLET PO (21:45)
--- NOTE | 2025-02-23 22:57 | PM.HP.1 ---
History of Present Illness History of Present Illness Date Patient Seen: 02/23/25 Time Patient Seen: 22:58 Chief complaint: Difficulty breathing, all over pain Narrative: The pt presents to the ER with c/o pain all over, especially on my left side. The pt reorts that he has had pain unilateral in his body every 3 weeks that alternates sides, and he was told by other Er providers that it was because of gout. He has taken colchicine which he states does not help the pain. The pt last for about 10 days, non-specific but unilateral, affecting shoulders, trunk, lower ext. this started after having a [place] [id number]. In the Er he had a CT chest/ CT abd which did not show any significant abnormalities. Today his worse c/o of ankle pains, The pain is described sharp, nothing makes it worse or better, no CP, pressure, PFSH Social History Smoking Status: Former smoker Meds Home Medications and Allergies Home Medications ?Medication ?Instructions ?Recorded ?Confirmed ?Type oxycodone 5 mg capsule 5 mg PO BID PRN 08/29/22 08/29/22 History Allergies Allergy/AdvReac Type Severity Reaction Status Date / Time No Known Drug Allergies Allergy Verified 02/23/25 13:20 Exam Vital Signs (past 8 hours): - 02/23/25 15:00 02/23/25 15:04 02/23/25 15:04 Pulse Rate 99 H 100 H Respiratory Rate 19 19 Blood Pressure 151/86 H Pulse Oximetry 98 97 02/23/25 15:30 02/23/25 16:00 02/23/25 16:13 Pulse Rate 101 H 105 H 106 H Respiratory Rate 18 24 24 Blood Pressure Pulse Oximetry 99 93 93 02/23/25 16:13 02/23/25 16:30 02/23/25 16:30 Pulse Rate 108 H Respiratory Rate Blood Pressure 159/77 H 154/70 H Pulse Oximetry 95 02/23/25 17:00 02/23/25 17:00 02/23/25 17:30 Pulse Rate 100 H Respiratory Rate 23 Blood Pressure 148/66 H 151/73 H Pulse Oximetry 93 02/23/25 17:30 02/23/25 18:00 02/23/25 18:00 Pulse Rate 92 H 86 Respiratory Rate 20 18 Blood Pressure 148/85 H Pulse Oximetry 94 94 02/23/25 18:30 02/23/25 18:30 02/23/25 19:00 Pulse Rate 84 85 Respiratory Rate 19 20 Blood Pressure 147/90 H Pulse Oximetry 97 97 02/23/25 19:00 02/23/25 19:30 02/23/25 19:30 Pulse Rate 86 Respiratory Rate 22 Blood Pressure 143/83 H 148/88 H Pulse Oximetry 94 02/23/25 20:00 02/23/25 20:00 Pulse Rate 88 Respiratory Rate 22 Blood Pressure 155/87 H Pulse Oximetry 94 Oxygen Delivery Method Room Air Const General: cooperative, healthy appearing and comfortable Resp Auscultation: clear to auscultation bilaterally Cardio Rate: regular rate Rhythm: regular rhythm GI Auscultation: normal bowel sounds Neuro General: patient alert, patient awake and patient oriented x3 Objective Labs 02/23/25 14:07 02/23/25 14:39 Labs: Laboratory Results - last 24 hr 02/23/25 02/23/25 02/23/25 14:07 14:20 14:33 WBC 14.0 H RBC 5.04 Hgb 12.9 L Hct 37.8 L MCV 74.9 L MCH 25.6 L MCHC 34.2 RDW 18.3 H Plt Count 309 Neut % (Auto) 82.7 H Lymph % (Auto) 6.2 L [place] % (Auto) 10.6 Eos % (Auto) 0.0 L Baso % (Auto) 0.5 Neut # (Auto) 44876 H Lymph # (Auto) 900 L [place] # (Auto) 1500 H Eos # (Auto) 0 Baso # (Auto) 100 ESR 28 H PT INR APTT 36 D-Dimer 1409 H Sodium Potassium Chloride Carbon Dioxide BUN Creatinine Estimated GFR BUN/Creatinine Ratio Glucose Lactate Calcium Total Bilirubin AST ALT Alkaline Phosphatase Troponin I 0.023 C-Reactive Protein 37.8 H NT-Pro-B Natriuret Pep 124 Total Protein Albumin Globulin Albumin/Globulin Ratio Procalcitonin Urine Color Urine Appearance Urine pH Ur Specific [place] Urine Protein Urine Glucose (UA) Urine Ketones Urine Occult Blood Urine Nitrate Urine Bilirubin Urine Urobilinogen Ur Leukocyte Esterase Urine RBC Urine WBC Ur Squamous Epith Cells Urine Bacteria Granular Casts Ur Culture Indicated? Vol Urine Centrifuged Chlamy pneumoniae PCR Not detected Adenovirus (PCR) Not detected B. pertussis DNA (PCR) Not detected B.parapertussis DNA PCR Not detected Coronavirus OC43 (PCR) Not detected Coronavirus HKU1 (PCR) Not detected Coronavirus 229E (PCR) Not detected SARS-CoV-2 (PCR) Not detected Coronavirus NL63 (PCR) Not detected Human Metapneumovir PCR Not detected Influenza Type A (PCR) Not detected Influenza Type B (PCR) Not detected M. pneumoniae (PCR) Not detected Parainfluenza 1 (PCR) Not detected Parainfluenza 2 (PCR) Not detected Parainfluenza 3 (PCR) Not detected Parainfluenza 4 (PCR) Not detected RSV (PCR) Not detected Entero/Rhino (PCR) Not detected 02/23/25 02/23/25 14:39 14:48 WBC RBC Hgb Hct MCV MCH MCHC RDW Plt Count Neut % (Auto) Lymph % (Auto) [place] % (Auto) Eos % (Auto) Baso % (Auto) Neut # (Auto) Lymph # (Auto) [place] # (Auto) Eos # (Auto) Baso # (Auto) ESR PT 14.6 H INR 1.3 APTT D-Dimer Sodium 128 L Potassium 2.6 L* Chloride 88 L Carbon Dioxide 25 BUN 24 H Creatinine 1.78 H Estimated GFR 49 L BUN/Creatinine Ratio 13.5 Glucose 181 H Lactate 1.6 Calcium 9.4 Total Bilirubin 2.3 H AST 29 ALT 26 Alkaline Phosphatase 85 Troponin I C-Reactive Protein NT-Pro-B Natriuret Pep Total Protein 9.1 H Albumin 4.6 Globulin 4.5 H Albumin/Globulin Ratio 1.0 Procalcitonin 1.24 H Urine Color Yellow Urine Appearance Clear Urine pH 5.5 Ur Specific [place] 1.010 Urine Protein 2+ H Urine Glucose (UA) 3+ H Urine Ketones Negative Urine Occult Blood 3+ H Urine Nitrate Negative Urine Bilirubin Negative Urine Urobilinogen 1.0 Ur Leukocyte Esterase Negative Urine RBC 10-30/hpf H Urine WBC 1-5/hpf Ur Squamous Epith Cells 1-5 /hpf Urine Bacteria None seen Granular Casts 0-1/lpf Ur Culture Indicated? Cult not indicated Vol Urine Centrifuged 10ml (spun) Chlamy pneumoniae PCR Adenovirus (PCR) B. pertussis DNA (PCR) B.parapertussis DNA PCR Coronavirus OC43 (PCR) Coronavirus HKU1 (PCR) Coronavirus 229E (PCR) SARS-CoV-2 (PCR) Coronavirus NL63 (PCR) Human Metapneumovir PCR Influenza Type A (PCR) Influenza Type B (PCR) M. pneumoniae (PCR) Parainfluenza 1 (PCR) Parainfluenza 2 (PCR) Parainfluenza 3 (PCR) Parainfluenza 4 (PCR) RSV (PCR) Entero/Rhino (PCR) Assessment & Plan Assessment & Plan narrative: 1. hyponatermia- given 30 cc/k of sepsis NS bolus for his WBC in the Er, will recheck this in the am, uknown cause, on tele, 2. hypokalemia- given bolus in the , replacing on the floor with oral replacement, recheck in am. 3. leukocytosis - WBC of 14, unknown source, I have discussed the presenting symptoms, labs, and imaging with the ER provider, CT chest / CT abd reviewed showing no abnormalities, labs reviewed showing a Na - 128, K of 2.6, Cr. of 1.78 , checking the uric acid, I would recommend rheumatology consultation as an outpt. Time-Based Coding :: [TOTAL MINUTES] spent with patient and on the chart (including review of chart, obtaining history, exam, reviewing outside data, placing orders, documenting exam and treatment plan, and counseling patient) on [DATE].
[2025-02-23] MEDS: HYDROCODONE/ACET 5/325 TABLET 1 TAB PO (23:08)
[2025-02-23 23:55] LABS: Uric Acid 13.7 mg/dL (3.5-8.5)
[2025-02-24] VITALS (26 sets, daily range): BP systolic 127–175; BP diastolic 70–90; PULSE 76–107; RESP 15–29; TEMP 36.2–36.6; O2SAT 94–98
--- NOTE | 2025-02-24 03:02 | PC.NURSE ---
Pt admission at this time boarding in the Emergency Department. Pt states that he had a sudden onset of weakness and generalized pain. During bedside assessment pt has pain in left arm, difficulty moving without pain. Pt is a one person assist to move in hospital bed to stand and use urinal.
[2025-02-24] MEDS: IBUPROFEN 600 MG TABLET PO ×2 (03:58→09:42)
[2025-02-24] MEDS: HYDROCODONE/ACET 5/325 TABLET 1 TAB PO ×2 (03:58→09:43)
[2025-02-24 04:44] LABS: Add Manual Diff / Slide Review NO; Hematocrit 33.8 % (41-53); Hemoglobin 11.3 g/dL (13.5-17.5); Lymphocytes Absolute Auto 1000 /uL (1100-4500); Mean Corpuscular HGB Conc 33.3 % (30-36); Mean Corpuscular Hemoglobin 25.2 PG (26-34); Mean Corpuscular Volume 75.5 fL (80-100); Platelet Count 283 X10^3/uL (150-400)
[2025-02-24 04:54] LABS: Blood Urea Nitrogen 20 mg/dL (9-20); Calcium 8.4 mg/dL (8.4-10.2); Carbon Dioxide 26 mmol/L (22-32); Chloride 92 mmol/L (98-107); Estimated Glomerular Filt Rate > 60 mL/min (>60); Glucose 162 mg/dL (70-99); HEMOLYSIS < 15 (0-50); Sodium 129 mmol/L (137-145)
[2025-02-24 04:57] LABS: Potassium 2.7 mmol/L (3.4-5.1)
[2025-02-24] MEDS: DOXYCYCLINE HYCLATE 100 MG TABLET PO ×2 (08:46→21:34)
[2025-02-24] MEDS: PANTOPRAZOLE DR 20 MG TABLET PO (08:46)
[2025-02-24] MEDS: POTASSIUM CHLORIDE 20 MEQ/15 ML UDC 40 MEQ PO (08:46)
[2025-02-24] MEDS: POTASSIUM CHLORIDE IN WATER 10 MEQ/100 ML PIGGYBACK 100 MEQ IV ×3 (08:46→10:59)
--- NOTE | 2025-02-24 09:04 | PC.NURSE ---
Pt a&ox4. C/o 03/23 pain in LUE with movement. Requires 2 person assist with adjusting position due to pain with movement. Left ankle and foot swelling observed and pt states that he has hx of gout & NH. Denies n/v, cp, sob.
[2025-02-24 09:40] LABS: Magnesium 2.5 mg/dL (1.6-2.3)
[2025-02-24] MEDS: OXYCODONE IR 10 MG TABLET PO (12:27)
[2025-02-24] MEDS: POTASSIUM CHLORIDE 20 MEQ TAB 40 MEQ PO ×2 (13:12→16:54)
[2025-02-24] MEDS: COLCHICINE 0.6 MG TABLET 1.2 MG PO (13:12)
[2025-02-24 13:43] LABS: Blood Urea Nitrogen 23 mg/dL (9-20); Calcium 8.3 mg/dL (8.4-10.2); Carbon Dioxide 27 mmol/L (22-32); Chloride 95 mmol/L (98-107); Estimated Glomerular Filt Rate > 60 mL/min (>60); Glucose 174 mg/dL (70-99); HEMOLYSIS < 15 (0-50); Potassium 3.3 mmol/L (3.4-5.1); Sodium 131 mmol/L (137-145)
--- NOTE | 2025-02-24 16:12 | CM.DANOTE ---
DCP Assessment note pt is a 39yo M admitted with hyponatremia/hypokalemia. SOB/in pain. PCP Kandi Hogue Payer Coordinated care and self pay CASH CONTROL SPECIALIST reviewed EMR. CASH CONTROL SPECIALIST met with pt in room and introduced self and role. pt lives with ex in [place]. indep at baseline. is a [employer]. only asked for work excuse letter at dc, hopeful for the rest of the week off work and hopeful to have whatever limitations for heavy lifting in paperwork. This CASH CONTROL SPECIALIST agreed to complete work excuse letter closer to dc. P: dc home with OP f/u and ex to transport at nd. needs work excuse letter. CM team will continue to follow in case any additional DCP/CM needs arise BLADIMIR Black Discharge Planning/Care Management CM Discharge Assessment Start: 02/23/25 22:52 Freq: Status: Active Protocol: Document 02/24/25 16:11 SL (Rec: 02/24/25 16:12 SL Desktop) Discharge Planning Assessment Assigned Discharge BLADIMIR [employer] Salesperson DPOA/Assigned Leah, ex Designee Name Contact Information [phone] Advance Directives? No History Provided By Patient Prior Living House Arrangements Household Members family Type of Drives own vehicle transporation used prior to admit Independent with ADL Yes 's Is patient alert and Yes oriented? Discharge Plan Home Whiteboard Updated Yes in Patient Room with name and ext. # of Rotary Operator Review Status In Process Please Provide Date 02/24/25 Initial DC Assessment Was Performed Next Review Type Continued Stay Review
--- NOTE | 2025-02-24 16:17 | P.PN_ITS ---
Subjective Subjective Date Patient Seen: 02/24/25 Interval history: Chief complaint: Multi articular gout flare History of present illness 02/23: 39-year-old patient who had a myocardial infarction in August of 2022 after which developed stage 3 chronic kidney disease and gout. Patient noted bilateral ankle pain and swelling went home from work with fatigue pt reports that he has had pain unilateral in his body every 3 weeks that alternates sides, and he was told by other Er providers that it was because of gout. He has taken colchicine which he states does not help the pain. The pt last for about 10 days, non-specific but unilateral, affecting shoulders, trunk, lower ext. this started after having a [place] [id number]. In the Er he had a CT chest/ CT abd which did not show any significant abnormalities. Today his worse c/o of ankle pains, The pain is described sharp, nothing makes it worse or better, no CP, pressure, Hospital course: 02/24: No fevers or chills overnight patient continues to have pain in his wrists in the costovertebral joints of his back his ankles and toes. White count is remained elevated at 13 potassium improved from 2.6-3.3 and sodium to 131 from 09/10 creatinine de-escalated from 1.78-1.41 uric acid measures at 13.7 troponin is negative procalcitonin 1.24 Review of systems: Cogent no loss consciousness No difficulty swallowing No nausea vomiting diarrhea constipation No urinary symptoms Physical exam: Well-developed middle-aged male no acute distress but frustrated HEENT unremarkable Heart and lungs clear Abdomen nondistended bowel sounds present Redness warmth and swelling of both ankle joints and MTP joint of big toe as well as wrists and elbow For objective laboratory and imaging data please see bottom of the note Assessment and plan: Acute multi joint gout flare in the setting of chronic kidney disease and hyperuricemia; suspect a sentinel event that is triggered this gout flare may have been dehydration partially related to chlorthalidone and empagliflozin * Hydrate and replete sodium potassium for hypo kalemia and hyponatremia * Colchicine loading dose and scheduled for gout flare * Systemic steroids for gout flare * Hold chlorthalidone * Sufficient analgesia DVT prophylaxis: * Enoxaparin Chronic coronary artery disease * Continue core measures 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 * Continue empagliflozin and fenofibrate may help benefit the gout 35 minutes spent with patient and on the chart (including review of chart, obtaining history, exam, reviewing outside data, placing orders, documenting exam and treatment plan, and counseling patient) Exam Vital Signs (past 8 hours): - 02/24/25 08:30 02/24/25 09:00 02/24/25 09:52 Temperature Pulse Rate 77 81 Respiratory Rate 19 23 Pulse Oximetry 96 98 98 Oxygen Delivery Method Room Air Oxygen Flow Rate 0 02/24/25 12:00 02/24/25 13:00 02/24/25 13:00 Temperature 97.1 F L Pulse Rate Respiratory Rate Pulse Oximetry 98 Oxygen Delivery Method Room Air Room Air Oxygen Flow Rate 0 0 Oxygen Delivery Method Room Air Oxygen Flow Rate 0 Objective Labs 02/24/25 04:00 02/24/25 13:17 Labs: Laboratory Results - last 24 hr 02/23/25 02/24/25 02/24/25 14:20 04:00 13:17 WBC 13.1 H RBC 4.48 L Hgb 11.3 L Hct 33.8 L MCV 75.5 L MCH 25.2 L MCHC 33.3 RDW 18.4 H Plt Count 283 Neut % (Auto) 77.8 H Lymph % (Auto) 7.4 L [place] % (Auto) 14.4 H Eos % (Auto) 0.1 L Baso % (Auto) 0.3 Neut # (Auto) 85029 H Lymph # (Auto) 1000 L [place] # (Auto) 1900 H Eos # (Auto) 0 Baso # (Auto) 0 Sodium 129 L 131 L Potassium 2.7 L* 3.3 L Chloride 92 L 95 L Carbon Dioxide 26 27 BUN 20 23 H Creatinine 1.46 H 1.41 H Estimated GFR > 60 > 60 BUN/Creatinine Ratio 13.7 16.3 Glucose 162 H 174 H Uric Acid 13.7 H* Calcium 8.4 8.3 L Magnesium 2.5 H PFSH Social History household members: family Smoking Status: Former smoker alcohol intake: never Assessment & Plan Time-Based Coding :: on [DATE]. Quality VTE Deep Vein Thrombosis/Pulmonary Embolism Present on Admission: No
[2025-02-24] MEDS: HYDROMORPHONE 1 MG INJ IV (21:32)
[2025-02-24] MEDS: COLCHICINE 0.6 MG TABLET PO (21:34)
[2025-02-24] MEDS: ATORVASTATIN 20 MG TABLET PO (21:34)
[2025-02-25] MEDS: HYDROMORPHONE 1 MG INJ IV (04:29)
[2025-02-25] MEDS: PANTOPRAZOLE DR 20 MG TABLET PO (05:53)
[2025-02-25 08:00] VITALS: BP 140/89; PULSE 82; RESP 16; TEMP 36.4; O2SAT 97
[2025-02-25 08:30] VITALS: O2SAT 97
[2025-02-25 08:41] VITALS: BP 140/89
[2025-02-25] MEDS: DOXYCYCLINE HYCLATE 100 MG TABLET PO (08:41)
[2025-02-25] MEDS: FENOFIBRATE, MICRONIZED 67 MG CAPSULE PO (08:41)
[2025-02-25] MEDS: COLCHICINE 0.6 MG TABLET PO (08:42)
[2025-02-25] MEDS: IBUPROFEN 600 MG TABLET PO (08:42)
[2025-02-25] MEDS: OXYCODONE IR 10 MG TABLET PO (08:42)
--- NOTE | 2025-02-25 11:24 | CM.DPNOTE ---
DCP note MECHANICAL EQUIPMENT TEST ENGINEER reviewed EMR per provider, cleared to dc home today. MECHANICAL EQUIPMENT TEST ENGINEER/provider completed signed work excuse letter per pt's request. MECHANICAL EQUIPMENT TEST ENGINEER gave copy of letter to pt in room. appreciative. denies other DCP needs P: dc today with ex- to transport home and OP f/u likely. no further CM needs at this time, will continue to follow as needed in case any additional DCP needs arise Isi Jordan, MECHANICAL EQUIPMENT TEST ENGINEER
--- NOTE | 2025-02-25 11:44 | P.DS_ITS ---
History of Present Illness History of Present Illness Date Patient Seen: 02/25/25 Chief complaint: Difficulty breathing, all over pain Narrative: Chief complaint: Multi articular gout flare History of present illness 02/23: 39-year-old patient who had a myocardial infarction in August of 2022 after which developed stage 3 chronic kidney disease and gout. Patient noted bilateral ankle pain and swelling went home from work with fatigue pt reports that he has had pain unilateral in his body every 3 weeks that alternates sides, and he was told by other Er providers that it was because of gout. He has taken colchicine which he states does not help the pain. The pt last for about 10 days, non-specific but unilateral, affecting shoulders, trunk, lower ext. this started after having a [place] [id number]. In the Er he had a CT chest/ CT abd which did not show any significant abnormalities. Today his worse c/o of ankle pains, The pain is described sharp, nothing makes it worse or better, no CP, pressure, Hospital course: 02/24: No fevers or chills overnight patient continues to have pain in his wrists in the costovertebral joints of his back his ankles and toes. White count is remained elevated at 13 potassium improved from 2.6-3.3 and sodium to 131 from 09/10 creatinine de-escalated from 1.78-1.41 uric acid measures at 13.7 troponin is negative procalcitonin 1.24 02/25: Pain level is improved and more fevers or chills electrolyte abnormalities are nearly in normal range patient discharged home in improved condition follow up with PCP Review of systems: Cogent no loss consciousness No difficulty swallowing No nausea vomiting diarrhea constipation No urinary symptoms Physical exam: Well-developed middle-aged male no acute distress but frustrated HEENT unremarkable Heart and lungs clear Abdomen nondistended bowel sounds present Redness warmth and swelling of both ankle joints and MTP joint of big toe as well as wrists and elbow For objective laboratory and imaging data please see bottom of the note Assessment and plan: Acute multi joint gout flare in the setting of chronic kidney disease and hyperuricemia; suspect a sentinel event that is triggered this gout flare may have been dehydration partially related to chlorthalidone and empagliflozin * Hydrate and replete sodium potassium for hypo kalemia and hyponatremia * Colchicine loading dose and scheduled for gout flare * Systemic steroids for gout flare * Hold chlorthalidone * Sufficient analgesia DVT prophylaxis: * Enoxaparin Chronic coronary artery disease * Continue core measures 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 * Continue empagliflozin and fenofibrate may help benefit the gout 35 minutes spent with patient and on the chart (including review of chart, obtaining history, exam, reviewing outside data, placing orders, documenting exam and treatment plan, and counseling patient) Discharge Providers Provider Date of admission: 02/23/25 19:56 Discharge Date: 02/25/25 Primary care physician: Kandi Rodriguez PA-C Discharge provider: Juan C Collazo MD Exam Vital Signs (past 8 hours): - 02/25/25 08:00 02/25/25 08:30 02/25/25 08:41 Temperature 97.5 F L Pulse Rate 82 Respiratory Rate 16 Blood Pressure 140/89 140/89 Pulse Oximetry 97 97 Oxygen Delivery Method Room Air Oxygen Flow Rate 0 0 Oxygen Delivery Method Room Air Oxygen Flow Rate 0 Objective Labs 02/24/25 04:00 02/24/25 13:17 Labs: Laboratory Results - last 24 hr 02/24/25 13:17 Sodium 131 L Potassium 3.3 L Chloride 95 L Carbon Dioxide 27 BUN 23 H Creatinine 1.41 H Estimated GFR > 60 BUN/Creatinine Ratio 16.3 Glucose 174 H Calcium 8.3 L PFSH Social History household members: family Smoking Status: Former smoker alcohol intake: never Discharge Plan Discharge Plan Patient Disposition: Home Discharge orders & Medications Prescriptions: New hydrocodone-acetaminophen 5-325 mg Tablet 1 tab PO Q4HR PRN (Reason: Pain, Moderate (4-6)) Qty: 12 0RF colchicine 0.6 mg Tablet 0.6 mg PO BID Qty: 180 0RF doxycycline hyclate 100 mg Tablet 100 mg PO BID Qty: 10 0RF prednisone 20 mg tablet 20 mg PO DAILY Qty: 7 0RF Continued atorvastatin 20 mg tablet 20 mg PO QPM metoprolol succinate 50 mg tablet extended release 24 hr 100 mg PO DAILY hydralazine 25 mg tablet 75 mg PO 3XD isosorbide mononitrate 60 mg tablet extended release 24 hr 60 mg PO DAILY fenofibrate 40 mg tablet 40 mg PO DAILY Jardiance 25 mg tablet 25 mg PO DAILY Discontinued chlorthalidone 25 mg tablet 25 mg PO QAM spironolactone 25 mg tablet 12.5 mg PO DAILY colchicine 0.6 mg tablet 0.6 mg PO DAILY PRN (Reason: gout pain) Jardiance 10 mg tablet 20 mg PO DAILY Follow up/Referrals: Kandi Rodriguez PA-C [Primary Care Provider, Medical] Visit Report/Discharge Packet Stand Alone Forms: Patient Portal/API, Stroke Signs & Symptoms Discharge Data Primary Care Provider: Kandi Rodriguez Attending Provider: Ihsan Morales Admit Date/Time: 02/23/25 19:56 Quality VTE Deep Vein Thrombosis/Pulmonary Embolism Present on Admission: No
--- NOTE | 2025-02-25 13:02 | PC.NURSE ---
Pt meets discharge criteria. Discharge paperwork and prescriptions reviewed with patient, questions encouraged and answered. IV removed. Pt dressed independently. Pt provided with written prescriptions per request by Dr. Collazo. Pt belogings accounted for and returned to pt. Transferred to [facility] via wheelchair.
--- NOTE | 2025-02-25 13:12 | PC.NURSE ---
Pt out via w/c by [employer] to POV with family and all belongings.
== END 2025-02-25 13:13 | disposition home or self-care (01) ==
LOC: ED 19:35 → AC 19:57
PROVIDERS: Admitting Provider Internal Medicine; Emergency Provider Emergency Medicine; PCP Physician Assistant; Referring Provider Emergency Medicine; Visit Provider Internal Medicine
DX: M10.9 Gout, unspecified (principal); R06.02 Shortness of breath; E11.22 Type 2 diabetes mellitus with diabetic chronic kidney disease; N18.30 Chronic kidney disease, stage 3 unspecified; E87.6 Hypokalemia; E87.1 Hypo-osmolality and hyponatremia; I25.2 Old myocardial infarction; I25.10 Atherosclerotic heart disease of native coronary artery without angina pectoris; Z87.891 Personal history of nicotine dependence; D72.829 Elevated white blood cell count, unspecified
CPT/HCPCS: 36415; 71045; 71275; 74178; 80048; 80053; 81001; 83605; 83735; 83880; 84145; 84484; 84550; 85025; 85379; 85610; 85651; 85730; 86140; 87040; 87633; 93005; 96365; 96366; 96367; 96375; 96376; 99284; G0378; J0131; J0692; J0696; J1171; J2919; Q9967